=== PATIENT | male | born 1930 | race Caucasian/White ===

== ENCOUNTER 2017-01-20 06:22 | Inpatient (IN) | payer MEDICARE, OTHER ==
[~2017-01-20] VITALS: Ht 170.2 cm; Wt 77.9 kg
[2017-01-20 07:33] LABS: BASOPHILS 0.2 % (0-2); EOSINOPHILS 0.7 % (0-7); HEMATOCRIT 31.9 % (42.0-54.0); HEMOGLOBIN 10.6 g/dL (13.5-17.5); IMMATURE GRANULOCYTES 0.2 % (0-5); LYMPHOCYTES 17.2 % (15-50); MCH 31.5 pg (26.0-34.0); MCHC 33.2 g/dL (31.0-37.0); MCV 94.7 fL (80.0-100.0); MEAN PLATELET VOLUME 11.2 fL (7.4-10.4); MONOCYTES 15.3 % (2-11); NEUTROPHILS 66.4 % (40-80); PLATELET COUNT 109 10x3/uL (130-400); RBC 3.37 10x6/uL (4.20-6.10); RDW 13.8 % (11.5-14.5); WBC 4.6 10x3/uL (4.8-10.8)
[2017-01-20 07:50] LABS: ANION GAP 15.5 mmol/L (8-16); BILIRUBIN - TOTAL 0.5 mg/dL (0.2-1.3); CALCIUM 8.2 mg/dL (8.5-10.1); CARBON DIOXIDE 25.5 mmol/L (21.0-32.0); CREATININE - SERUM 2.8 mg/dL (0.6-1.3)
[2017-01-20 15:30] LABS: CKMB 2.7 U/L (0.0-3.6); PRO BNP 3510 pg/mL (0-450)
[2017-01-20 15:49] LABS: CREATINE KINASE 972 UL (21-232)
--- NOTE | 2017-01-20 17:15 | NUR ---
PT RECEIVED TO ROOM FROM ER. PT IS ALERT AND ORIENTED, ABLE TO AMBULATE TO BATHROOM. RR EVEN AND UNLABORED, FAMILY IS WITH PT. VSS, NS RUNNING AT 50MLS/HR PER ORDERS. WILL COMPLETE HX AND ASSESSMENT. PT IS UNSURE OF MEDICATIONS. REPORTS THAT HIS FAMILY WILL BRING A MED SHEET TONIGHT OR FIRST THING IN THE MORNING. WILL CTM.
[2017-01-20 17:19] VITALS: BP 186/89; Ht 170.2 cm; Wt 77.9 kg
--- NOTE | 2017-01-20 18:00 | NUR ---
PT REFUSED TO WEAR SCDS.
--- NOTE | 2017-01-20 19:00 | NUR ---
PT NOT IN ROOM, PT WAS WHEELED TO MED SURG WEARING MASK TO SEE HIS WHO IS ALSO ON ISOLATION FOR FLU. WILL GIVE SHIFT REPORT ON PT CONDTITION FOR THE DAY.
[2017-01-20 21:56] VITALS: BP 132/50
[2017-01-20 22:25] LABS: CKMB 3.6 U/L (0.0-3.6); CREATINE KINASE 965 UL (21-232)
[2017-01-20 22:26] LABS: TROPONIN-I 0.154 ng/mL (0.000-0.060)
[2017-01-20] MEDS ORDERED: LIPITOR20 MG PO (23:29)
[2017-01-20] MEDS ORDERED: ACTOS45 MG PO (23:29)
[2017-01-20] MEDS ORDERED: CARDURA8 MG PO (23:30)
[2017-01-20] MEDS ORDERED: FUROSEMIDE40 MG PO (23:30)
[2017-01-20] MEDS ORDERED: TENORMIN25 MG PO (23:31)
[2017-01-20] MEDS ORDERED: BAYER CHEWABLE81 MG PO (23:32)
[2017-01-20] MEDS ORDERED: MULTIPLE VITAMI1 TA1 PO (23:33)
--- NOTE | 2017-01-21 00:38 | NUR ---
PT RESTING WELL IN BED, RESPIRATIONS EVEN AND UNLABORED. CALL LIGHT IN REACH, WILL CONTINUE PLAN OF CARE.
[2017-01-21 03:38] LABS: BASOPHILS 0.1 % (0-2); EOSINOPHILS 0 % (0-7); HEMATOCRIT 29.9 % (42.0-54.0); HEMOGLOBIN 9.9 g/dL (13.5-17.5); IMMATURE GRANULOCYTES 0.3 % (0-5); LYMPHOCYTES 8.2 % (15-50); MCH 31.2 pg (26.0-34.0); MCHC 33.1 g/dL (31.0-37.0); MCV 94.3 fL (80.0-100.0); MEAN PLATELET VOLUME 10.9 fL (7.4-10.4); NEUTROPHILS 79.4 % (40-80); PLATELET COUNT 98 10x3/uL (130-400); RBC 3.17 10x6/uL (4.20-6.10); RDW 13.7 % (11.5-14.5)
[2017-01-21 03:50] LABS: WBC 7.6 10x3/uL (4.8-10.8)
[2017-01-21 04:21] LABS: ALBUMIN 2.6 g/dL (3.4-5.0); ALKALINE PHOSPHATASE 57 U/L (46-116); ALT (SGPT) 22 U/L (10-68); BILIRUBIN - TOTAL 0.37 mg/dL (0.2-1.3); CALC OSMOLALITY 290 mosm/kg (275-300); CALCIUM 7.6 mg/dL (8.5-10.1); CARBON DIOXIDE 27.8 mmol/L (21.0-32.0); CHLORIDE - SERUM 106 mmol/L (98-107); CKMB 4.1 U/L (0.0-3.6); CREATININE - SERUM 2.4 mg/dL (0.6-1.3); GLUCOSE 138 mg/dL (74-106); PROTEIN - SERUM 6.2 g/dL (6.4-8.2); SODIUM 139 mmol/L (136-145); UREA NITROGEN 43 mg/dL (7-18); eGFR NON AFRICAN AMERICAN 27 mL/min (90-120)
[2017-01-21 04:23] LABS: CREATINE KINASE 968 UL (21-232)
[2017-01-21 04:24] LABS: TROPONIN-I 0.147 ng/mL (0.000-0.060)
[2017-01-21 06:09] VITALS: BP 122/65
[2017-01-21 08:43] VITALS: BP 141/58
--- NOTE | 2017-01-21 12:01 | NUR ---
PT RETURNS TO ROOM FROM SEEING . PT STATES IT MAKES HIM FEEL BETTER TO SEE HER. PT NOW IN BED, BED IN LOW POST, BED RAILS UP TIMES 2. CALL LIGHT WITH IN REACH. PT STATES NO COMPLAINTS OR CONCERNS AT THIS TIME.
[2017-01-21 13:12] VITALS: BP 126/69
[2017-01-21] MEDS ORDERED: TAMIFLU75 MG PO ×3 (13:44→14:26)
[2017-01-21] MEDS ORDERED: FLORAJEN3 CAPS460 MG PO ×3 (13:45→14:35)
[2017-01-21] MEDS ORDERED: LEVAQUIN750 MG PO ×3 (13:47→14:26)
--- NOTE | 2017-01-21 14:52 | NUR ---
Patient Name: DAPHNEY ROLLE Admission Status: ER Accout number: [id number] Admission Date: 01-20-2017 : 1930 Admission Diagnosis: Attending: EVELIA MUNSON Current LOS: 1 Anticipated DC Date: 01-21-2017 Planned Disposition: Home Primary Insurance: MEDICARE A & B Discharge Planning Comments: * Is the patient Alert and Oriented? Yes 0 * How many steps to enter\exit or inside your home? NONE 0 * PCP DR. PORTILLO 0 * Pharmacy [facility] [address] 0 * Preadmission Environment Home with Family 0 * ADLs Independent 0 * Equipment Walker 0 * Other Equipment NO MEDICAL EQUIPMENT PROVIDER PREFERENCE PT DOES NOT USE HIS WALKER 0 * List name and contact numbers for known caregivers / representatives who currently or will assist patient after discharge: SERA LÓPEZ, DAUGHTER, (WORK) 0 * Community resources currently utilized None 0 * Please name any agencies selected above. NONE 0 * Additional services required to return to the preadmission environment? No 0 * Can the patient safely return to the preadmission environment? Yes 0 * Has this patient been hospitalized within the prior 30 days at any hospital? No 0 CM MET WITH PT IN ROOM TO DISCUSS DISCHARGE PLANNING AND NEEDS. 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 PT HAS A WALKER THAT HE DOES NOT USE WITH NO MEDICAL EQUIPMENT PROVIDER PREFERENCE. PT HAS NO OUTSIDE SERVICES ASSISTING IN THE HOME. CM DISCUSSED AVAILABILITY OF HOME HEALTH, REHAB SERVICES AND MEDICAL EQUIPMENT. PT DENIES DISCHARGE NEEDS, REPORTS HIS DAUGHTER OR GRANDDAUGHTER WILL PICK HE AND HIS UP TODAY FOR DISCHARGE HOME. Oil Well Pumper: Jonathon Dai
--- NOTE | 2017-01-21 15:15 | NUR ---
REMOVED PT TELE. REMOVED IV CATH INTACT FROM LEFT WRIST, APPIED PRESSURE AND SECURED. PT SIGNED PAPERWORK AND STATES VERBAL UNDERSTANDING. PT GATHERS ALL BELONGINGS. PT TAKEN TO ACROSS [place]OM[place] IN MED SURGE WHERE DAUGHTER IS AWAITING TO TAKE BOTH HOME.
== END 2017-01-21 15:29 | disposition home or self-care (01) | DRG 153 ==
LOC: D.ER 06:22 → D.M2 16:18
PROVIDERS: Emergency Medicine; ADMIT Family Medicine
DX: J11.1 Influenza due to unidentified influenza virus with other respiratory manifestations (principal); N17.9 Acute kidney failure, unspecified; R06.03 Acute respiratory distress; I10 Essential (primary) hypertension; E78.5 Hyperlipidemia, unspecified; R53.1 Weakness; E86.0 Dehydration; R07.9 Chest pain, unspecified

== ENCOUNTER 2018-02-09 10:54 | Inpatient (IN) | payer MEDICARE, OTHER ==
[~2018-02-09] VITALS: Ht 170.2 cm; Wt 77.3 kg
--- NOTE | ~2018-02-09 | EC ---
PATIENT:DAPHNEY ROLLE DATE OF SERVICE: 02/09/18 SEX: M MEDICAL RECORD: [id number] DATE OF : [birth year] LOCATION:D.M2 D.210 AGE OF PATIENT: 87 ADMISSION DATE: 02/09/18 REFERRING PHYSICIAN: INTERPRETING PHYSICIAN: PAULO NEAL MD ECHOCARDIOGRAM REPORT ECHO CHARGES 4 ECHO COMPLETE Date: 02/10/18 CLINICAL DIAGNOSIS: ASSESS LV FUNCTION/PNEUMONIA ECHOCARDIOGRAPHIC MEASUREMENTS (adult normal given) AC root (d.<3.7cm) 3.2 cm LV Septum d (<1.2 cm> 1.6 cm Valve Excursion 1.6 cm LV Septum (systole) 1.9 cm Left Atria (s.<4.0cm> 4.4 cm LVPW d(<1.2cm) 1.6 cm RV (d.<2.3cm) 5.0 cm LVPW (sytole) 1.7 cm LV diastole(<5.6CM) 5.2 cm MV E-F(>70mm/sec) cm LV systole 3.8 cm LVOT Diameter 1.6 cm MV exc.(>10mm) 1.7 cm Est.ejection fraction (50-75%) % DOPPLER: LVIT cm/sec A 114 cm/sec E 130 cm/sec LA cm/sec RVSP 39 mmHg LVOT 183 cm/sec AOP1/2T m/s Asc. Ao 316 cm/sec RVOT 136 cm/sec RA cm/sec PA 205 cm/sec AV Gradient Peak 39.84mmHg AV Mean 24.21mmHg AV Area 1.2 cm MV Gradient Peak 8.12 mmHg MV Mean 4.28 mmHg MV Area cm COMMENTS: Warrant Clerk: 2 TONY MALLORY Candle Molder: 1 Dr. Neal TAPE# PACS Pericardial Effusion N DATE OF SERVICE: FINDINGS: 1. Left ventricular chamber size is within normal limits. Left ventricular systolic function is normal. Overall ejection fraction estimated at 55%. 2. Left atrium is enlarged at 4.4 cm. Right atrium and right ventricle chamber sizes are as well mildly dilated. 3. Valvular structures: Aortic valve demonstrates [id number] calcific aortic stenosis, valve area calculates 1.2 cm-squared with gradient of 39 mm across the valve. The remaining valvular structures have normal structure and ECHOCARDIOGRAM REPORT [id number] DAPHENY ROLLE motion. 4. Doppler interrogation elsewise reveals mild mitral regurgitation, mild tricuspid regurgitation, no other valvular insufficiency or stenosis. Pulmonary systolic pressure is estimated at 39 mmHg. 5. No evidence of pericardial effusion or left ventricular thrombus. TRANSINT:[id number] Voice Confirmation ID: [id number] DOCUMENT ID: [id number] PAULO NEAL MD CC: [id number] DICTATION DATE: 02/10/18 1258 COMPUTER TRAINER: 02/10/18 1309 ADM IN [facility] [address] [place] [address]
[~2018-02-09 10:54] MED LIST: ACTOS45 MG PO; BAYER CHEWABLE81 MG PO; CARDURA8 MG PO; FLORAJEN3 CAPS460 MG PO; FUROSEMIDE40 MG PO; LEVAQUIN750 MG PO; LIPITOR20 MG PO; MULTIPLE VITAMI1 TA1 PO; TAMIFLU75 MG PO; TENORMIN25 MG PO
[2018-02-09 11:43] LABS: BASOPHILS 0.2 % (0-2); EOSINOPHILS 1.1 % (0-7); IMMATURE GRANULOCYTES 0.2 % (0-5); LYMPHOCYTES 15.5 % (15-50); MCH 31.7 pg (26.0-34.0); MCHC 32.3 g/dL (31.0-37.0); MCV 98.4 fL (80.0-100.0); MONOCYTES 12.7 % (2-11); NEUTROPHILS 70.3 % (40-80); PLATELET COUNT 95 10x3/uL (130-400); RBC 3.15 10x6/uL (4.20-6.10); RDW 13.9 % (11.5-14.5); WBC 4.7 10x3/uL (4.8-10.8)
[2018-02-09 11:52] LABS: INR 1.15 (0.85-1.17); PROTIME 14.2 SECONDS (11.6-15.0)
[2018-02-09 11:53] LABS: APTT 45.1 SECONDS (22.8-39.4)
[2018-02-09 11:58] LABS: ALBUMIN 2.9 g/dL (3.4-5.0); ALKALINE PHOSPHATASE 60 U/L (46-116); ALT (SGPT) 13 U/L (10-68); BILIRUBIN - TOTAL 0.63 mg/dL (0.2-1.3); CALC OSMOLALITY 297 mosm/kg (275-300); CALCIUM 8.6 mg/dL (8.5-10.1); CHLORIDE - SERUM 108 mmol/L (98-107); CREATININE - SERUM 2.1 mg/dL (0.6-1.3); GLUCOSE 130 mg/dL (74-106); POTASSIUM - SERUM 4.2 mmol/L (3.5-5.1); PROTEIN - SERUM 7.1 g/dL (6.4-8.2); SODIUM 145 mmol/L (136-145); UREA NITROGEN 31 mg/dL (7-18); eGFR NON AFRICAN AMERICAN 32 mL/min (90-120)
[2018-02-09 12:10] LABS: CKMB 0.4 U/L (0.0-3.6); CREATINE KINASE 100 UL (21-232); PRO BNP 3867 pg/mL (0-450); TROPONIN-I < 0.017 ng/mL (0.000-0.060)
[2018-02-09 15:51] LABS: MONO NEGATIVE (NEGATIVE)
--- NOTE | 2018-02-09 17:21 | NUR ---
ROCEPHIN INFUSION COMPLETE AT 1425. ZITHROMAX INFUSION COMPLETE AT 1708.
--- NOTE | 2018-02-09 18:40 | NUR ---
PATIENT ARRIVED TO UNIT AT THIS TIME VIA WHEELCHAIR. FAMILY AT BEDSIDE. VITALS ARE STABLE. PATIENT PROVIDED WITH SANDWICH AND COLA. ONCOMING SHIFT NURSE GIVEN REPORT. VITALS ARE ON BOARD. TELEMETRY PLACED ON PATIENT.
[2018-02-09 19:32] VITALS: BP 147/66; Ht 170.2 cm; Wt 77.3 kg
[2018-02-09 20:00] VITALS: BP 136/61
--- NOTE | 2018-02-09 20:45 | NUR ---
RESUMING CARE. PT IS ALERT LAYING IN BED WATCHING TV. NO C/O VOICED AT THIS TIME. BED IN THE LOWEST POSITION WITH CALL LIGHT IN REACH. SIDE RAILS UP X 2. WILL CONTINUE TO MONITOR PT AND FOLLOW PLAN OF CARE.
[2018-02-10] VITALS: BP 137/52
[2018-02-10 04:00] VITALS: BP 123/55
[2018-02-10 06:09] LABS: BASOPHILS 0.2 % (0-2); EOSINOPHILS 0.9 % (0-7); HEMATOCRIT 29.9 % (42.0-54.0); HEMOGLOBIN 9.5 g/dL (13.5-17.5); LYMPHOCYTES 29.7 % (15-50); MCH 31.1 pg (26.0-34.0); MCHC 31.8 g/dL (31.0-37.0); MEAN PLATELET VOLUME 11.8 fL (7.4-10.4); MONOCYTES 14.8 % (2-11); NEUTROPHILS 54.4 % (40-80); PLATELET COUNT 97 10x3/uL (130-400); RBC 3.05 10x6/uL (4.20-6.10); RDW 13.9 % (11.5-14.5); WBC 4.5 10x3/uL (4.8-10.8)
[2018-02-10 06:45] LABS: ALBUMIN 2.7 g/dL (3.4-5.0); ANION GAP 15.7 mmol/L (8-16); BILIRUBIN - TOTAL 0.63 mg/dL (0.2-1.3); CALCIUM 8.2 mg/dL (8.5-10.1); CARBON DIOXIDE 25.1 mmol/L (21.0-32.0); CREATININE - SERUM 2.1 mg/dL (0.6-1.3); POTASSIUM - SERUM 3.8 mmol/L (3.5-5.1); PROTEIN - SERUM 6.6 g/dL (6.4-8.2)
[2018-02-10 06:52] LABS: % SATURATION 8 % (15-55); IRON 19 ug/dl (35-150); TOTAL IRON BIND CAPACITY 225 ug/dl (260-445); UNSAT IRON BIND CAPACITY 206 ug/dl (150-375)
--- NOTE | 2018-02-10 07:19 | NUR ---
PT LYING IN BED SLEEPING. DID NOT WAKE I ENTERED, DID NOT DISTURB AT THIS TIME. CL IN REACH. SRX2
[2018-02-10 08:10] LABS: PLATELET ESTIMATE DECREASED
[2018-02-10 08:11] LABS: CRENATED CELLS OCC; ELLIPTOCYTES OCC; ROULEAUX OCC
[2018-02-10 08:31] VITALS: BP 106/64
[2018-02-10 12:17] LABS: EBV - EARLY ANTIGEN AB IGG <9.0 U/mL (0.0-8.9); EBV - NUCLEAR ANTIGEN AB IGG 49.2 U/mL (0.0-17.9); EBV VIRAL CAPSID AB IGM <36.0 U/mL (0.0-35.9)
--- NOTE | 2018-02-10 12:45 | NUR ---
PT IS EXPRESSING HE WANTS TO GO HOME. VERY CONCERNED ABOUT BEING HOME ALONE WIHTOUT CONSTANT CARE. STATES SHE HAS FALLEN 3 TIMES AND BROKEN SEVERAL RIBS AND HE NEEDS TO BE THERE TO CARE FOR HER.
[2018-02-10 13:05] VITALS: BP 110/78
--- NOTE | 2018-02-10 14:36 | NUR ---
PT HAS BEEN UP AND WALKING AROUND THE HALLS, IV POLE IN HAND. VERY PLESANT BUT STILL WANTS TO BADLY GO HOME.
--- NOTE | 2018-02-10 16:01 | NUR ---
REFUSED SCDS. WALKS FREQUENTLY IN HALLS
--- NOTE | 2018-02-10 16:33 | NUR ---
PT TAKEN TO LUNG SCAN.
--- NOTE | 2018-02-10 17:09 | NUR ---
PT TO D/C ACCORDING TO DR. MAYERS
--- NOTE | 2018-02-10 18:59 | NUR ---
CALLED DR. MAYERS. STATES OK THANKS EVERETTE
[2018-02-10] MEDS ORDERED: ZPAK PO (19:02)
[2018-02-10] MEDS ORDERED: OMNICEF300 MG PO (19:03)
[2018-02-11 07:21] LABS: FOLATE (FOLIC ACID) - SERUM >20.0 ng/mL (>3.0)
--- NOTE | 2018-02-13 09:04 | MORECARE ---
CASE MANAGEMENT DISCHARGE SUMMARY PATIENT: DAPHNEY ROLLE UNIT: [id number] ADM DATE: 02/09/18 AGE: 87 : [birth year] SEX: M ROOM/BED: D.2103 AUTHOR: FLORENCIA BLACKWOOD PHYSICIAN: REFERRING PHYSICIAN: URSZULA MAYERS MD DATE OF SERVICE: 02/13/18 Discharge Plan Patient Name: DAPHNEY ROLLE Facility: [facility]:[place] : 1930 Planned Disposition: Home Anticipated Discharge Date: 02/10/18 Discharge Date: 02/10/2018 Expected LOS: 1 Initial Reviewer: [email or web address] Initial Review Date: 02/13/2018 Generated: 02/13/18 10:04 am Patient Name: DAPHNEY ROLLE Page [id number] at 0904 All edits/amendments must be made on the electronic document DICTATION DATE: 02/13/18903 WORM PACKER: DM 02/13/18903 RPT#: [id number] DC DATE:02/10/18 STATUS: DIS IN [facility] [address] [facility] [place] [address] END OF REPORT
== END 2018-02-10 18:59 | disposition home or self-care (01) | DRG 193 ==
LOC: D.ER 10:54 → D.EDHOLD 13:11 → D.M2 13:11
PROVIDERS: Family Medicine; ADMIT Internal Medicine Nephrology
DX: J18.9 Pneumonia, unspecified organism (principal); J96.01 Acute respiratory failure with hypoxia; N17.9 Acute kidney failure, unspecified; D61.818 Other pancytopenia; Y95 Nosocomial condition; I25.10 Atherosclerotic heart disease of native coronary artery without angina pectoris; Z95.5 Presence of coronary angioplasty implant and graft; I10 Essential (primary) hypertension; D50.9 Iron deficiency anemia, unspecified

== ENCOUNTER 2018-09-13 15:36 | Emergency (ER) | payer MEDICARE, OTHER ==
[~2018-09-13] VITALS: Ht 170.2 cm; Wt 72.7 kg
[~2018-09-13 15:36] MED LIST changes: +OMNICEF300 MG PO; +ZPAK PO
[2018-09-13 15:51] VITALS: Ht 170.2 cm; Wt 72.7 kg
[2018-09-13 16:20] LABS: BASOPHILS 0.3 % (0-2); EOSINOPHILS 3.3 % (0-7); HEMATOCRIT 25.8 % (42.0-54.0); HEMOGLOBIN 8.4 g/dL (13.5-17.5); LYMPHOCYTES 14.4 % (15-50); MCH 29.8 pg (26.0-34.0); MCHC 32.6 g/dL (31.0-37.0); MCV 91.5 fL (80.0-100.0); MONOCYTES 10.1 % (2-11); NEUTROPHILS 71.9 % (40-80); PLATELET COUNT 113 10x3/uL (130-400); RBC 2.82 10x6/uL (4.20-6.10); RDW 16.4 % (11.5-14.5)
[2018-09-13 16:32] LABS: APTT 29.1 SECONDS (22.8-39.4); INR 1.09 (0.85-1.17); PROTIME 13.6 SECONDS (11.6-15.0)
[2018-09-13 16:46] LABS: ALBUMIN 3.3 g/dL (3.4-5.0); ALKALINE PHOSPHATASE 63 U/L (46-116); ALT (SGPT) 12 U/L (10-68); BILIRUBIN - TOTAL 0.46 mg/dL (0.2-1.3); CALC OSMOLALITY 291 mosm/kg (275-300); CALCIUM 8.2 mg/dL (8.5-10.1); CHLORIDE - SERUM 105 mmol/L (98-107); CREATININE - SERUM 2.4 mg/dL (0.6-1.3); GLUCOSE 129 mg/dL (74-106); POTASSIUM - SERUM 4.4 mmol/L (3.5-5.1); PROTEIN - SERUM 7.2 g/dL (6.4-8.2); SODIUM 141 mmol/L (136-145); UREA NITROGEN 39 mg/dL (7-18); eGFR NON AFRICAN AMERICAN 27 mL/min (90-120)
[2018-09-13 16:57] LABS: CKMB 0.9 U/L (0.0-3.6); CREATINE KINASE 131 UL (21-232)
[2018-09-13 17:00] LABS: TROPONIN-I < 0.017 ng/mL (0.000-0.060)
[2018-09-13 19:14] VITALS: BP 146/74
== END 2018-09-13 19:15 | disposition home or self-care (01) ==
LOC: D.ER 15:36
PROVIDERS: Emergency Medicine
DX: R07.89 Other chest pain (principal); I12.9 Hypertensive chronic kidney disease with stage 1 through stage 4 chronic kidney disease, or unspecified chronic kidney disease; N18.9 Chronic kidney disease, unspecified

== ENCOUNTER 2019-03-29 09:56 | Outpatient (CLI) | payer MEDICARE, OTHER ==
[~2019-03-29] VITALS: Ht 170.2 cm; Wt 81.8 kg
[~2019-03-29 09:56] MED LIST changes: +CARAFATE1 G PO; +PROTONIX40 MG PO
[2019-03-29 10:34] VITALS: BP 146/64; Ht 170.2 cm; Wt 81.8 kg
== END 2019-03-29 12:30 | disposition home or self-care (01) ==
LOC: D.OPS 09:56
PROVIDERS: ATTEND Internal Medicine Nephrology
DX: D64.9 Anemia, unspecified (principal)

== ENCOUNTER 2019-04-05 10:03 | Outpatient (CLI) | payer MEDICARE, OTHER ==
[~2019-04-05] VITALS: Ht 170.2 cm; Wt 84.1 kg
[2019-04-05 11:34] VITALS: BP 134/69; Ht 170.2 cm; Wt 84.1 kg
== END 2019-04-05 12:43 | disposition home or self-care (01) ==
LOC: D.OPS 10:03
PROVIDERS: ATTEND Internal Medicine Nephrology
DX: D64.9 Anemia, unspecified (principal)

== ENCOUNTER 2019-04-12 09:52 | Outpatient (CLI) | payer MEDICARE, OTHER ==
[~2019-04-12] VITALS: Ht 170.2 cm; Wt 81.8 kg
[2019-04-12 10:28] VITALS: BP 117/80; Ht 170.2 cm; Wt 81.8 kg
--- NOTE | 2019-04-12 11:42 | NUR ---
IV INFUSION COMPLETE AT THIS TIME, PT TOLERATED WELL. PT RESPIRATIONS EVEN UNLABORED PT HAS NO COMPLAINTS AT THIS TIME.
--- NOTE | 2019-04-12 11:57 | NUR ---
PT LEAVING OPS AT THIS TIME WITH FAMILY, AMBULATORY, NO ACUTE DISTRESS NOTED.
== END 2019-04-12 11:57 | disposition home or self-care (01) ==
LOC: D.OPS 09:52
PROVIDERS: ATTEND Internal Medicine Nephrology
DX: D64.9 Anemia, unspecified (principal)

== ENCOUNTER 2019-04-19 10:06 | Outpatient (CLI) | payer MEDICARE, OTHER ==
[~2019-04-19] VITALS: Ht 170.2 cm; Wt 81.8 kg
[2019-04-19 10:40] VITALS: BP 144/70; Ht 170.2 cm; Wt 81.8 kg
== END 2019-04-19 12:23 | disposition home or self-care (01) ==
LOC: D.OPS 10:06
PROVIDERS: ATTEND Internal Medicine Nephrology
DX: D64.9 Anemia, unspecified (principal)

== ENCOUNTER → 2019-04-26 09:49 | Outpatient (CLI) | payer MEDICARE, OTHER ==
[~2019-04-26] VITALS: Ht 170.2 cm; Wt 81.8 kg
[2019-04-26 10:10] VITALS: BP 125/62; Ht 170.2 cm; Wt 81.8 kg
== END | disposition home or self-care (01) ==
LOC: D.OPS 09:49
PROVIDERS: ATTEND Internal Medicine Nephrology
DX: D64.9 Anemia, unspecified (principal)

== ENCOUNTER 2019-05-03 09:45 | Outpatient (CLI) | payer MEDICARE, OTHER ==
[~2019-05-03] VITALS: Ht 170.2 cm; Wt 81.8 kg
[2019-05-03 10:10] VITALS: BP 130/77; Ht 170.2 cm; Wt 81.8 kg
--- NOTE | 2019-05-03 12:21 | NUR ---
1135-INFUSION COMPLETE. IV D/C AND PRESSURE HELD. 1140-UP TO BATHROOM, VOIDS. 1145-DISCHARGE INSTRUCTIONS REVIEWED. 1150-D/C WITH SON-IN-LAW VIA WHEELCHAIR TO HOME.
== END 2019-05-03 11:50 | disposition home or self-care (01) ==
LOC: D.OPS 09:45
PROVIDERS: ATTEND Internal Medicine Nephrology
DX: D64.9 Anemia, unspecified (principal)

== ENCOUNTER 2019-05-06 13:02 | Observation (INO) | payer MEDICARE, OTHER ==
[~2019-05-06] VITALS: Ht 170.2 cm; Wt 81.6 kg
[2019-05-06] VITALS (8 sets, daily range): BP systolic 125–150; BP diastolic 59–80; BMI 28.2
[2019-05-06 13:43] LABS: BASOPHILS 0.7 % (0-2); EOSINOPHILS 5.1 % (0-7); HEMATOCRIT 24.6 % (42.0-54.0); IMMATURE GRANULOCYTES 0.3 % (0-5); LYMPHOCYTES 24.9 % (15-50); MCHC 29.3 g/dL (31.0-37.0); MCV 99.2 fL (80.0-100.0); MEAN PLATELET VOLUME 9.4 fL (7.4-10.4); PLATELET COUNT 111 10x3/uL (130-400); RBC 2.48 10x6/uL (4.20-6.10); RDW 23.9 % (11.5-14.5); WBC 2.9 10x3/uL (4.8-10.8)
[2019-05-06 13:47] LABS: HEMOGLOBIN 7.2 g/dL (13.5-17.5)
--- NOTE | 2019-05-06 13:47 | NUR ---
RENAE IN LAB CALLED WITH A HGB 7.2
[2019-05-06 13:51] LABS: CALC OSMOLALITY 299 mosm/kg (275-300); CALCIUM 8.6 mg/dL (8.5-10.1); CARBON DIOXIDE 30.1 mmol/L (21.0-32.0); CHLORIDE - SERUM 106 mmol/L (98-107); CREATININE - SERUM 2.7 mg/dL (0.6-1.3); GLUCOSE 155 mg/dL (74-106); POTASSIUM - SERUM 3.9 mmol/L (3.5-5.1); SODIUM 143 mmol/L (136-145); UREA NITROGEN 45 mg/dL (7-18); eGFR NON AFRICAN AMERICAN 24 mL/min (90-120)
[2019-05-06 13:52] LABS: APTT 46.6 SECONDS (22.8-39.4); INR 1.17 (0.85-1.17); PROTIME 14.9 SECONDS (11.6-15.0)
[2019-05-06 14:08] LABS: ALBUMIN 2.9 g/dL (3.4-5.0); ALKALINE PHOSPHATASE 77 U/L (30-120); ALT (SGPT) 16 U/L (10-68); BILIRUBIN - TOTAL 0.57 mg/dL (0.2-1.3); CKMB 0.5 U/L (0.0-3.6); CREATINE KINASE 57 UL (21-232); MAGNESIUM - SERUM 2.3 mg/dL (1.8-2.4); PROTEIN - SERUM 6.6 g/dL (6.4-8.2); TROPONIN-I < 0.017 ng/mL (0.000-0.060)
--- NOTE | 2019-05-06 14:44 | NUR ---
URINE SENT TO THE LAB
[2019-05-06 14:53] LABS: BILIRUBIN NEGATIVE (NEGATIVE); GLUCOSE NEGATIVE (NEGATIVE); KETONE NEGATIVE (NEGATIVE); NITRITE NEGATIVE (NEGATIVE); UROBILINOGEN NORMAL (NORMAL)
--- NOTE | 2019-05-06 20:55 | NUR ---
PRBC'S INFUSION COMPLETE. VITAL SIGNS STABLE. NO TRANSFUSION REACTION NOTED. WILL CONTINUE TO MONITOR.
[2019-05-06 22:19] LABS: BASOPHILS 0.6 % (0-2); EOSINOPHILS 4.5 % (0-7); HEMATOCRIT 27.6 % (42.0-54.0); HEMOGLOBIN 8.3 g/dL (13.5-17.5); IMMATURE GRANULOCYTES 0.3 % (0-5); LYMPHOCYTES 32.8 % (15-50); MCH 29.1 pg (26.0-34.0); MCHC 30.1 g/dL (31.0-37.0); MEAN PLATELET VOLUME 10.8 fL (7.4-10.4); NEUTROPHILS 46.8 % (40-80); PLATELET COUNT 121 10x3/uL (130-400); RBC 2.85 10x6/uL (4.20-6.10); RDW 23.2 % (11.5-14.5); WBC 3.1 10x3/uL (4.8-10.8)
[2019-05-06 22:20] LABS: MCV 96.8 fL (80.0-100.0)
[2019-05-07 04:00] VITALS: BP 152/73
[2019-05-07 04:41] LABS: ANION GAP 9.9 mmol/L (8-16); CALCIUM 8.1 mg/dL (8.5-10.1); CARBON DIOXIDE 29.9 mmol/L (21.0-32.0); CREATININE - SERUM 2.2 mg/dL (0.6-1.3); POTASSIUM - SERUM 3.8 mmol/L (3.5-5.1)
[2019-05-07 04:52] LABS: HEMATOCRIT 25.8 % (42.0-54.0); HEMOGLOBIN 7.8 g/dL (13.5-17.5); MCHC 30.2 g/dL (31.0-37.0); MCV 95.9 fL (80.0-100.0); MEAN PLATELET VOLUME 10.6 fL (7.4-10.4); PLATELET COUNT 113 10x3/uL (130-400); RBC 2.69 10x6/uL (4.20-6.10); RDW 23.1 % (11.5-14.5); WBC 2.9 10x3/uL (4.8-10.8)
[2019-05-07 05:15] LABS: EOSINOPHILS 10 % (0-7); LYMPHOCYTES 27 % (15-50); MONOCYTES 6 % (2-11); NEUTROPHILS 54 % (40-80); PLATELET ESTIMATE DECREASED
[2019-05-07 08:16] VITALS: BP 139/69
[2019-05-07 12:51] VITALS: Ht 170.2 cm; Wt 81.6 kg
[2019-05-07 13:21] LABS: % SATURATION 20 % (15-55); IRON 50 ug/dl (35-150); TOTAL IRON BIND CAPACITY 242 ug/dl (260-445); UNSAT IRON BIND CAPACITY 192 ug/dl (150-375)
[2019-05-07 13:39] VITALS: BP 109/66
--- NOTE | 2019-05-07 13:54 | NUR ---
PATIENT WALK TEST PULSE OX O2 WAS 95-96%. PATIENT DID DROP TO 88% WHILE HE WAS TALKING HOWEVER CAME BACK UP. STATED, "EXCITED TO GO HOME."
--- NOTE | 2019-05-07 16:47 | NUR ---
IV THERAPY DC'ED FROM LEFT FOREARM TIP INTACT BY Patti SANTORO RN. DISCHARGE INSTRUCTIONS GIVEN. PATIENT VERBALIZED UNDERSTANDING. WHEELED DOWNSTAIRS MYSELF. PATIENT HAD 2 RIDES WAITING ON HIM. A MAN IN A Loco2 SENT BY HIS WELL A MAN IN A WHITE JEEP (SON IN LAW) SENT BY DAUGHTER SERA. PATIENT WENT WITH MAN IN Loco[employer].
== END 2019-05-07 16:50 | disposition home or self-care (01) ==
LOC: D.ER 13:02 → D.MS 15:19 → OBSVTIME 15:49 → D.MS 05-07 16:50
PROVIDERS: Family Medicine; Internal Medicine Hematology & Oncology; ADMIT Internal Medicine Nephrology; ATTEND Internal Medicine Nephrology
DX: D61.818 Other pancytopenia (principal); I13.0 Hypertensive heart and chronic kidney disease with heart failure and stage 1 through stage 4 chronic kidney disease, or unspecified chronic kidney disease; E11.22 Type 2 diabetes mellitus with diabetic chronic kidney disease; N18.9 Chronic kidney disease, unspecified; I50.30 Unspecified diastolic (congestive) heart failure; N17.9 Acute kidney failure, unspecified; K29.80 Duodenitis without bleeding; K29.70 Gastritis, unspecified, without bleeding; K21.0 Gastro-esophageal reflux disease with esophagitis; I25.10 Atherosclerotic heart disease of native coronary artery without angina pectoris; E78.5 Hyperlipidemia, unspecified; D64.9 Anemia, unspecified

== ENCOUNTER 2019-05-10 09:53 | Outpatient (CLI) | payer MEDICARE, OTHER ==
[~2019-05-10] VITALS: Ht 170.2 cm; Wt 81.8 kg
--- NOTE | 2019-05-10 10:36 | NUR ---
1005-to room 2515 1030-iv sited to r arm with 22g iv. iron infusion started at 100cc/hr.
--- NOTE | 2019-05-10 10:49 | NUR ---
[facility]IF[facility] PATIENT HAD STAYED OVERNIGHT IN THE HOSPITAL RECENTLY FOR BLOOD TRANSFUSION. NO CONTACT PRECAUTIONS REQUIRED.
[2019-05-10 10:54] VITALS: BP 110/47; Ht 170.2 cm; Wt 81.8 kg
== END 2019-05-10 11:30 | disposition home or self-care (01) ==
LOC: D.OPS 09:53
PROVIDERS: ATTEND Internal Medicine Nephrology
DX: D64.9 Anemia, unspecified (principal)

== ENCOUNTER 2019-05-17 09:53 | Outpatient (CLI) | payer MEDICARE, OTHER ==
[~2019-05-17] VITALS: Ht 170.2 cm; Wt 81.8 kg
[2019-05-17 10:33] VITALS: Ht 170.2 cm; Wt 81.8 kg
== END 2019-05-17 16:50 | disposition home or self-care (01) ==
LOC: D.OPS 09:53
PROVIDERS: ATTEND Internal Medicine Hematology & Oncology
DX: D64.9 Anemia, unspecified (principal)

== ENCOUNTER 2019-06-22 10:37 | Outpatient (CLI) | payer MEDICARE, OTHER ==
[~2019-06-22] VITALS: Ht 170.2 cm; Wt 83.6 kg
[2019-06-22 11:38] VITALS: BP 124/64; Ht 170.2 cm; Wt 83.6 kg
== END 2019-06-22 16:05 | disposition home or self-care (01) ==
LOC: D.OPS 10:37
PROVIDERS: ATTEND Internal Medicine Hematology & Oncology
DX: D64.9 Anemia, unspecified (principal)

== ENCOUNTER 2019-10-03 07:56 | Outpatient (CLI) | payer MEDICARE, OTHER ==
[~2019-10-03] VITALS: Ht 170.2 cm; Wt 81.8 kg
[2019-10-03 09:09] VITALS: BP 120/56; Ht 170.2 cm; Wt 81.8 kg
--- NOTE | 2019-10-03 09:54 | NUR ---
0937 1ST UNIT CHECKED AT BEDSIDE BY THIS NURSE AND RENAE CHRISTIE RN, INIATED AT 50/CC/HR. PT STATES HE BELIEVES HE WILL TAKE A NAP. 0950 PT "FIGGITY" DOSING WITH JERKING. DENIES OTHER ISSUES. BLOOD INCREASED TO 175/CC/HR.
--- NOTE | 2019-10-03 10:13 | NUR ---
1000 PT CONTINUES TO BE RESTLESS, DR. RABAGO'S OFFICE NOTIFIED. 1010 PT. STILL AT THE MOMENT. V.S WNL. NO RASH. BLOOD CONTINUES, NO RESP. S/S
--- NOTE | 2019-10-03 10:36 | NUR ---
1035 DR. RABAGO RETURNED CALL CHECKING ON PT JERKINESS. PT. STILL JERKY, V.S. WNL. NO RASH. NO RESP. ISSUES. DR. RABAGO STATES WILL DECREASE BENADRYL DOSAGE NEXT TIME FOR BLOOD.
--- NOTE | 2019-10-03 10:43 | NUR ---
1040 LUNCH ORDERED FOR PT, REG DIET. PT CONTINUES TO FEEL UNEASY.
--- NOTE | 2019-10-03 10:58 | NUR ---
1050 UP TO BR, VOIDS QS, MAYBE FEELING SOME BETTER AND A LITTLE LESS JERKY.
--- NOTE | 2019-10-03 12:07 | NUR ---
1202 DENIES PROBLEMS WITH 2ND TRANSFUSION, RATE INCREASED TO 175/CC/HR. PT. ATE 75% REG DIET. STATES FEELING MUCH BETTER AND BELIEVES THE MEDICINE HAS ABOUT WORN OFF NOW, NOT FEELING JERKY. SITTING UP IN CHAIR.
--- NOTE | 2019-10-03 13:48 | NUR ---
1245 NO PROBLEMS WITH BLOOD, BACK TO BED TO REST. DENIES PROBLEMS WITH JERKINESS.
--- NOTE | 2019-10-03 13:49 | NUR ---
1348 BLOOD HAS COMPLETED, LINE BEING FLUSHED WITH NS. WANG, PHONED AND NOTIFIED OF TRANSFUSION COMPLETED AND STATES HE WILL COME GET HIM.
--- NOTE | 2019-10-03 15:25 | NUR ---
1410 IV DC'D WITH CATH INTACT. PT. SLEEPY BUT STATES READY TO GO HOME. DENIES PROBLEMS WITH TRANSFUSION. DC INSTS GIVEN TO BE RELEASED IN WC.
== END 2019-10-03 14:15 | disposition home or self-care (01) ==
LOC: D.OPS 07:56
PROVIDERS: ATTEND Internal Medicine Hematology & Oncology
DX: D64.9 Anemia, unspecified (principal)